=== PATIENT | male | born 1990 | race Caucasian/White ===

== ENCOUNTER 2019-05-14 18:39 | Emergency (ER) | payer OTHER ==
[~2019-05-14] VITALS: Ht 172.7 cm; Wt 74.8 kg
[2019-05-14 18:40] VITALS: BP 132/76
--- NOTE | 2019-05-14 18:52 | NUR ---
PT BROUGHT IN BLS TO ER BED 02
--- NOTE | 2019-05-14 19:00 | NUR ---
BIBA FOR ETOH/SUBSTANCE ABUSE. PT FOUND ON STREET OF [address] AND [address], PASSED OUT. SKIN IS PINK/WARM/DRY; PT IS SLEEPING BUT CAN BE WOKE UP. LUNGS CLEAR BL; HR EVEN AND REGULAR; VSS; PATIENT IS ON MONITOR AND POSITIONED FOR COMFORT; HOB ELEVATED; BEDRAILS UP X2; BED DOWN. ER MD MADE AWARE OF PT STATUS.
--- NOTE | 2019-05-14 19:08 | NUR ---
PT IS VOMITING. VSS. MADE AWARE.
--- NOTE | 2019-05-14 19:15 | NUR ---
PT IS VOMITTING. VSS. MADE AWARE.
--- NOTE | 2019-05-14 19:20 | NUR ---
RECEIVED REPORT FROM AM NURSE. PT LAYING IN BED SLEEPING, AROUSABLE TO PAIN AT THIS TIME. VSS, RR EVEN AND UNLABORED. ALL NEEDS MET.
--- NOTE | 2019-05-14 19:20 | NUR ---
REPORT GIVEN TO MIMI MOORE.
[2019-05-14] MEDS ORDERED: NACL 0.9% 1,000 ML IV ONE ×2 (20:10→21:00)
[2019-05-14 20:30] LABS: BASOPHILS # (AUTO) 0.1 K/uL (0.00-0.22); BASOPHILS % (AUTO) 1.4 % (0.0-2.0); EOSINOPHILS # (AUTO) 0.2 K/uL (0-0.4); EOSINOPHILS % (AUTO) 4.3 % (0.0-4.0); HEMATOCRIT 44.4 % (36-52); HEMOGLOBIN 14.8 g/dL (12.0-18.0); LYMPHOCYTES # (AUTO) 1.7 K/uL (2.0-11.5); LYMPHOCYTES % (AUTO) 31.7 % (20.5-51.1); MEAN CORPUSCULAR HEMOGLOBIN 31 pg (27-31); MEAN CORPUSCULAR HGB CONC 33 g/dL (33-37); MEAN CORPUSCULAR VOLUME 93.3 fL (80-94); MONOCYTES # (AUTO) 0.7 K/uL (0.8-1.0); MONOCYTES % (AUTO) 12.8 % (1.7-9.3); NEUTROPHILS # (AUTO) 2.7 K/uL (1.8-7.7); NEUTROPHILS % (AUTO) 49.8 % (42.2-75.2); PLATELET COUNT (AUTO) 254 K/uL (140-450); RED BLOOD CELL COUNT(AUTO) 4.76 MIL/uL (4.20-6.10); RED CELL DISTRIBUTION WIDTH 14.8 % (11.6-13.7); WHITE BLOOD COUNT (AUTO) 5.4 K/uL (4.8-10.8)
[2019-05-14 20:40] LABS: ANION GAP 15.5 (8-16); CARBON DIOXIDE 25.7 mmol/L (21-32); POTASSIUM 3.2 mmol/L (3.5-5.1)
--- NOTE | 2019-05-14 20:43 | NUR ---
PT LAYING IN BED, AROUSABLE TO TOUCH, PT IS NOW MORE AWAKE AND ALERT, AOX4, REPORTS WEAKNESS AND MILD NAUSEA. VSS, RR EVEN AND UNLABORED. ALL NEEDS MET AT THIS TIME.
[2019-05-14 20:46] LABS: ALBUMIN 3.7 g/dL (3.4-5.0); TOTAL BILIRUBIN 0.3 mg/dL (0.0-1.0)
[2019-05-14] MEDS ORDERED: POTASSIUM CHLORIDE 10 MEQ TABER PO ONE (20:50)
--- NOTE | 2019-05-14 22:40 | NUR ---
PT LAYING IN BED, AROUSABLE TO TOUCH, VSS, RR EVEN AND UNLABORED. ALL NEEDS MET AT THIS TIME.
[2019-05-14 23:48] LABS: BARBITURATE, URINE NEG. ng/ml (NEG <=200); BENZODIAZEPINE, URINE NEG. ng/mL (NEG <=200); CANNABINOID, URINE NEG. ng/mL (NEG <=50); COCAINE, URINE NEG. ng/mL (NEG <=300); OPIATE, URINE NEG. ng/mL (NEG <=2000); PHENCYCLIDINE SCREEN,URINE NEG. ng/mL (NEG <=25)
--- NOTE | 2019-05-15 01:40 | NUR ---
PT IS HOMELESS, STATED THAT HE WILL GO BACK TO THE STREETS. PT WITH CLOTHING APPROPRIATE FOR WEATHER. SANDWICH PROVIDED. BUS PASS PROVIDED. PT GIVEN HOMELESS RESOURCE PACKET AND ALCOHOL/SUBSTANCE ABUSE PACKET WITH EDUCATION.
--- NOTE | 2019-05-15 01:40 | NUR ---
PT AOX4, RR EVEN AND UNLABORED. DENIES ANY PAIN OR NAUSEA. AMBULATORY WITH STEADY GAIT.
[2019-05-15 01:45] VITALS: BP 105/56
--- NOTE | 2019-05-15 01:45 | NUR ---
Patient discharged with v/s stable. Written and verbal after care instructions given and explained. Patient verbalized understanding. Ambulatory with steady gait. All questions addressed prior to discharge. Advised to follow up with PMD.
== END 2019-05-15 01:45 | disposition home or self-care (01) ==
LOC: MED 18:39
DX: F10.129 Alcohol abuse with intoxication, unspecified (principal); E87.6 Hypokalemia; F15.10 Other stimulant abuse, uncomplicated; Z91.013 Allergy to seafood; Y90.8 Blood alcohol level of 240 mg/100 ml or more
CPT/HCPCS: 36415; 80053; 80305; 85025; 99283; G0482; J7030

== ENCOUNTER 2019-10-26 23:00 | Emergency (ER) | payer OTHER ==
[~2019-10-26] VITALS: Ht 165.1 cm; Wt 63.5 kg
[2019-10-26 23:00] VITALS: BP 140/59
--- NOTE | 2019-10-26 23:00 | NUR ---
PT BARBI ALS. TAKEN TO BED 11
--- NOTE | 2019-10-26 23:09 | NUR ---
29 Y/O MALE BIBA C/O ABD PAIN, N/V/D X2 DAYS. ACHING 10/10 PAIN TO MID ABD. BOWEL SOUNDS PRESENT X4 QUAD. ABD SOFT, ROUND, NONTENDER TO PALP. PT STATES HE DRANK 3 PINTS OF VODKA AND 2 TALL CANS OF "HURRICANE" TODAY. DENIES DRUG USE. RR EVEN AND UNLABORED. PT CALM AND PLEASANT IN BED. VSS. MEDHX: DENIES ALLERGIES: SHRIMP
[2019-10-26 23:15] LABS: BASOPHILS % (AUTO) 0.3 % (0.0-2.0); EOSINOPHILS # (AUTO) 0.2 K/uL (0-0.4); EOSINOPHILS % (AUTO) 2.7 % (0.0-4.0); HEMATOCRIT 42.2 % (36-52); HEMOGLOBIN 14.4 g/dL (12.0-18.0); LYMPHOCYTES # (AUTO) 3.3 K/uL (2.0-11.5); LYMPHOCYTES % (AUTO) 37.7 % (20.5-51.1); MEAN CORPUSCULAR HEMOGLOBIN 33 pg (27-31); MEAN CORPUSCULAR HGB CONC 34 g/dL (33-37); MEAN CORPUSCULAR VOLUME 96.3 fL (80-94); MONOCYTES # (AUTO) 0.6 K/uL (0.8-1.0); MONOCYTES % (AUTO) 6.3 % (1.7-9.3); NEUTROPHILS # (AUTO) 4.7 K/uL (1.8-7.7); PLATELET COUNT (AUTO) 388 K/uL (140-450); RED BLOOD CELL COUNT(AUTO) 4.38 MIL/uL (4.20-6.10); RED CELL DISTRIBUTION WIDTH 14.9 % (11.6-13.7); WHITE BLOOD COUNT (AUTO) 8.9 K/uL (4.8-10.8)
--- NOTE | 2019-10-26 23:18 | NUR ---
URINE COLLECTED FROM PT. PT COOPERATIVE AND PLEASANT. VSS. WILL CONTINUE TO MONITOR.
--- NOTE | 2019-10-26 23:49 | NUR ---
PT REMOVED IV LINE. PT STILL C/O OF ABDOMINAL PAIN. DR. ATKINSON MADE AWARE.
[2019-10-26 23:54] LABS: ANION GAP 17.2 (8-16); CHLORIDE 104 mmol/L (98-107); GLUCOSE 178 mg/dL (74-106); POTASSIUM 3.2 mmol/L (3.5-5.1); SODIUM SERUM 141 mmol/L (136-145); UREA NITROGEN, BLOOD 9 mg/dL (7-18)
[2019-10-26 23:55] LABS: CREATININE 0.8 mg/dL (0.7-1.3); GFR ARICAN-AMERICAN 146 mL/min (>90)
[2019-10-26] MEDS ORDERED: KETOROLAC 30 MG/ML VIAL IVP ONE (23:55)
[2019-10-26] MEDS ORDERED: ONDANSETRON 4 MG/2 ML VIAL IVP ONE (23:55)
[2019-10-26] MEDS ORDERED: NACL 0.9% 1,000 ML IV ONE (23:55)
[2019-10-26 23:56] LABS: ASPARTATE AMINOTRANSFERASE 24 U/L (15-37); TOTAL BILIRUBIN 0.3 mg/dL (0.0-1.0)
[2019-10-26 23:58] LABS: ACETAMINOPHEN < 0.5 ug/ml (10-30); ALBUMIN 3.9 g/dL (3.4-5.0); SALICYLATE < 2.8 mg/dL (2.8-20.0)
[2019-10-27 00:02] LABS: BARBITURATE, URINE POSITIVE ng/ml (NEG <=200); BENZODIAZEPINE, URINE NEGATIVE ng/mL (NEG <=200); CANNABINOID, URINE NEGATIVE ng/mL (NEG <=50); COCAINE, URINE NEGATIVE ng/mL (NEG <=300); OPIATE, URINE NEGATIVE ng/mL (NEG <=2000); PHENCYCLIDINE SCREEN,URINE NEGATIVE ng/mL (NEG <=25)
--- NOTE | 2019-10-27 00:39 | NUR ---
PT RESTING IN BED ALERT, RR EVEN AND UNLABORED. PT POSITIONED FOR COMFORT. BED LOCKED AND IN LOW POSITION. NO C/O PAIN AT THIS TIME. VSS. WILL CONTINUE TO MONITOR
--- NOTE | 2019-10-27 00:58 | NUR ---
PT STATES "I WANT TO LEAVE SO I CAN GET TO THE [facility] BEFORE THEY CLOSE"
[2019-10-27 01:04] VITALS: BP 106/70
--- NOTE | 2019-10-27 01:04 | NUR ---
Patient discharged with v/s stable. Written and verbal after care instructions given and explained. Patient alert, oriented and verbalized understanding of instructions. Ambulatory with steady gait. All questions addressed prior to discharge. ID band removed. Patient advised to follow up with PMD. Rx of BENTYL AND ZOFRAN given. Patient educated on indication of medication including possible reaction and side effects. Opportunity to ask questions provided and answered. PT REFUSED TO SIGN DISCHARGE PAPERWORK
== END 2019-10-27 01:04 | disposition home or self-care (01) ==
LOC: MED 23:00
DX: F10.129 Alcohol abuse with intoxication, unspecified (principal); R10.9 Unspecified abdominal pain; Y90.8 Blood alcohol level of 240 mg/100 ml or more; Z91.013 Allergy to seafood
CPT/HCPCS: 36415; 80053; 80305; 85025; 96361; 96374; 96375; 99283; G0480; G0482; J1885; J2405; J7030

== ENCOUNTER 2019-10-27 15:41 | Inpatient (IN) | payer OTHER ==
[~2019-10-27] VITALS: Ht 175.3 cm; Wt 68.9 kg
[2019-10-27 15:41] VITALS: BP 125/97
--- NOTE | 2019-10-27 15:41 | NUR ---
PT BIB [facility] WITH COMPLAINTS OF ABD PAIN AND SUICIDAL THOUGHTS. PT APPEARS DROWSY AND UNDER THE INFLUENCE. PT ADMITS TO DRINKING ALCOHOL. PT STATES "I DRINK EVERYDAY." PT ALSO HAS SUICIDAL IDEATION AND THOUGHTS OF HURTING HIMSELF AND OTHERS. PT HAS FLAT AFFECT, APPEARS UNDER THE INFLUENCE, EYES DROWSY, AWAKE AND ALERT. PT NOT ANSWERING QUESTIONS APPROPRIATELY. PT MAKING STATEMENTS LIKE "AM I ON A 72 HOUR HOLD? CAUSE IF I'M NOT THEN I'M GOING OUT AND HURTING PEOPLE." PT WAS ASKED IF HE WAS SUICIDAL AND PT REPLIES "YES." PT ASKED IF HE WANTED TO HURT OTHER PEOPLE AND PT REPLIED "YES." PT VERY AGITATED. PT REFUSING TO REMOVE HIS CLOTHING AT THIS TIME. PT ASKED TO GET INTO A GOWN AND PATIENT REFUSED.
--- NOTE | 2019-10-27 15:41 | NUR ---
HARMFUL ITEMS REMOVED FROM PTS ROOM
[2019-10-27] MEDS ORDERED: PANTOPRAZOLE 40 MG INJ VIAL IVP ONE (15:50)
[2019-10-27] MEDS ORDERED: MULTIVITAMIN-12 10 ML, THIAMINE 100 MG, MAGNESIUM SULFATE 50% 2,000 MG, FOLIC ACID 1 MG... IV SCH ×5 (15:50)
--- NOTE | 2019-10-27 15:55 | NUR ---
CALLED PHARMACY FOR BANANA BAG
--- NOTE | 2019-10-27 15:56 | NUR ---
SECURITY CALLED TO BEDSIDE.
--- NOTE | 2019-10-27 15:58 | NUR ---
SECURITY AND MORE MALE STAFF AT BEDSIDE. PT COOPERATING AND REMOVING HIS CLOTHING AND PLACED IN BELONGINGS BAG. PT IS CALM AND COOPERATIVE AT THIS TIME. PT WAS PLACED INTO A GOWN. SITTER PLACED AT BEDSIDE.
--- NOTE | 2019-10-27 15:59 | NUR ---
DR STEPHENSON AT BEDSIDE
--- NOTE | 2019-10-27 16:04 | NUR ---
Security Pancho at bedside. Belongings inventoried with myself. Belongings list made. Security took belongings to their office.
--- NOTE | 2019-10-27 16:18 | NUR ---
29 Y/O MALE BIBA WITH C/C OF SUICIDAL IDEATION, DTO, DTS. PER AMBULANCE HE SELF CALLED HIMSELF FOR HELP IN DETOX. PER ASSESSMENT PATIENT STATED HE WANTED TO HURT HIMSELF, HURT OTHERS "I CAN CAUSE A LOT OF DAMAGE". PT IN HOSPITAL EARLIER AND LABS FOR BARBITUATES, ALCOHOL OF 261 YESTERDAY. PT WITH HX OF ETOH AND DRUG ABUSE. PER EMS PT ALLERGIC TO SHRIMP, UNABLE TO OBTAIN MEDICAL HX, OR MEDICATIONS TAKEN ON A REGULAR BASIS. PT COOPERATIVE AND UNCOOPERATIVE AT TIMES. SITTER AT BEDSIDE.
--- NOTE | 2019-10-27 16:22 | NUR ---
EKG AT BEDSIDE.
[2019-10-27 16:34] LABS: BASOPHILS # (AUTO) 0.3 K/uL (0.00-0.22); BASOPHILS % (AUTO) 4.1 % (0.0-2.0); EOSINOPHILS # (AUTO) 0.2 K/uL (0-0.4); HEMATOCRIT 42.7 % (36-52); HEMOGLOBIN 14.4 g/dL (12.0-18.0); LYMPHOCYTES # (AUTO) 2.2 K/uL (2.0-11.5); LYMPHOCYTES % (AUTO) 34.4 % (20.5-51.1); MEAN CORPUSCULAR HEMOGLOBIN 33 pg (27-31); MEAN CORPUSCULAR HGB CONC 34 g/dL (33-37); MEAN CORPUSCULAR VOLUME 96.5 fL (80-94); MONOCYTES # (AUTO) 0.4 K/uL (0.8-1.0); MONOCYTES % (AUTO) 6.9 % (1.7-9.3); NEUTROPHILS # (AUTO) 3.3 K/uL (1.8-7.7); NEUTROPHILS % (AUTO) 51.6 % (42.2-75.2); PLATELET COUNT (AUTO) 375 K/uL (140-450); RED BLOOD CELL COUNT(AUTO) 4.42 MIL/uL (4.20-6.10); RED CELL DISTRIBUTION WIDTH 15.1 % (11.6-13.7); WHITE BLOOD COUNT (AUTO) 6.3 K/uL (4.8-10.8)
[2019-10-27 16:46] LABS: BARBITURATE, URINE POS. ng/ml (NEG <=200); BENZODIAZEPINE, URINE NEG. ng/mL (NEG <=200); CANNABINOID, URINE NEG. ng/mL (NEG <=50); COCAINE, URINE NEG. ng/mL (NEG <=300); OPIATE, URINE NEG. ng/mL (NEG <=2000); PHENCYCLIDINE SCREEN,URINE NEG. ng/mL (NEG <=25)
--- NOTE | 2019-10-27 16:47 | NUR ---
PER DR. STEPHENSON TO GIVE MEDICATION WIDE OPEN ; BANANA BAG
[2019-10-27 16:56] LABS: ALBUMIN 4.1 g/dL (3.4-5.0); ANION GAP 14.3 (8-16); ASPARTATE AMINOTRANSFERASE 23 U/L (15-37); CARBON DIOXIDE 27.4 mmol/L (21-32); CHLORIDE 108 mmol/L (98-107); CREATININE 0.8 mg/dL (0.7-1.3); GFR ARICAN-AMERICAN 146 mL/min (>90); GLUCOSE 88 mg/dL (74-106); POTASSIUM 3.7 mmol/L (3.5-5.1); SODIUM SERUM 146 mmol/L (136-145); TOTAL BILIRUBIN 0.2 mg/dL (0.0-1.0); UREA NITROGEN, BLOOD 5 mg/dL (7-18)
[2019-10-27 17:08] LABS: SALICYLATE < 2.8 mg/dL (2.8-20.0)
[2019-10-27 17:09] LABS: ACETAMINOPHEN < 0.5 ug/ml (10-30)
--- NOTE | 2019-10-27 17:28 | NUR ---
PT RESTLESS, SITTING UP SAYING "I HAVE ANXIETY." PT PICKING AT HIS TAPE THAT IS HOLDING HIS IV. PT INSTRUCTED TO NOT REMOVE THE IV. PT REPLIED "FUCK THAT. I WANT TO LEAVE." PT RESTLESS, AGITIATED, GRADUALLY GETTING MORE AGGRESSIVE, PULLING AWAY FROM STAFF TRYING TO KEEP HIM FROM REMOVING HIS IV. SECURITY CALLED TO BEDSIDE. BOTH EMT'S AT BEDSIDE HOLDING PATIENT ARMS DOWN. CALLED FOR HELP. PT COMBATIVE AND FIGHTING TRYING TO GET OUT OF BED. DR. STEPHENSON MADE AWARE.
--- NOTE | 2019-10-27 17:30 | NUR ---
PT PLACED IN 4 POINT RESTRAINTS AT THIS TIME PER DR. STEPHENSON ORDER. SECURITY AT BEDSIDE. EVS CHNITAN AT BEDSIDE SPEAKING WITH PATIENT.
--- NOTE | 2019-10-27 17:45 | NUR ---
UNABLE TO TAKE VITALS, SKIN AND CIRCULATION INTACT, PT COMBATIVE AND CRUSING
--- NOTE | 2019-10-27 18:05 | NUR ---
PT RELEASED FROM RESTRAINTS. FOOD TRAY PROVIDED. PT IS CALM AND COOPERATIVE. PT IS EATING. PT IS QUIET AND NOT THREATENING HARM AT THIS TIME. SITTER AT BEDSIDE.
--- NOTE | 2019-10-27 18:15 | NUR ---
PT CALM AND COOPERATIVE; RESTRAINTS REMOVED; VSS TAKEN; PT EATING IN BED; PT USED URINAL. 1-1 SITTER AT BEDSIDE.
--- NOTE | 2019-10-27 18:43 | NUR ---
PER PT, HE STATES HE TAKES 2 MG OF ATIVAN PRN 6 HRS BUT HAS NOT BEEN TAKING THE MEDICATION AND INSTEAD HAS BEEN USING ALCOHOL DAILY TO RELAX
[2019-10-27] MEDS ORDERED: LORazepam 2 MG/ML VIAL IVP ONE ×2 (18:55→21:05)
--- NOTE | 2019-10-27 19:13 | NUR ---
REPORT GIVEN TO MEGA
--- NOTE | 2019-10-27 19:26 | NUR ---
TELEPSYCH INITIATED PER DR. Mitzi GARZA
--- NOTE | 2019-10-27 19:30 | NUR ---
PT CONTINUES TO ENDORSE HOMICIDAL IDEATIONS; STATES, "I'M FROM [place]. I ALWAYS WANT TO HURT SOMEONE." PT IS GUARDED ABOUT SUICIDAL IDEATIONS, "DOES IT LOOK LIKE I WANT TO HURT MYSELF?." PT HAS FLAT AFFECT. PRESENTS ANXIOUS AND PACES AROUND BED. WILL CONTINUE TO MONITOR 1:1 WITH ED STAFF AT BEDSIDE.
--- NOTE | 2019-10-27 19:40 | NUR ---
TELEPSYCH, DR. MAYA, CALLED AND SPOKE WITH PRIMARY RN. Melissa OCASIO
--- NOTE | 2019-10-27 19:41 | NUR ---
Dr. Coats speaking to patient via remote communication.
--- NOTE | 2019-10-27 19:42 | NUR ---
SPOKE WITH PSYCHIATRIST, DR MAYA, AND GAVE BRIEF REPORT REGARDING PT AND WELL BEING.
--- NOTE | 2019-10-27 19:43 | NUR ---
Randolph laguerre in EDM - 10/27/19 at 2007 by [employer] TELEPSYCH, DR. MAYA, CALLED AND SPOKE WITH PRIMARY RN. Melissa OCASIO
--- NOTE | 2019-10-27 20:05 | NUR ---
Randolph laguerre in EDM - 10/27/19 at 2005 by [employer] TELEPSYCH, DR. MAYA, CALLED AND SPOKE WITH PRIMARY RN. Melissa OCASIO
--- NOTE | 2019-10-27 21:07 | NUR ---
PER DR RAM[facility] 5150 HOLD FOR DTO/DTS. CONTINUE TO MONITOR.
[2019-10-27] MEDS ORDERED: LORazepam 2 MG/ML VIAL ONE (21:08)
--- NOTE | 2019-10-27 21:10 | NUR ---
FAX REPORT FROM TELEPSYCH RECEIVED AND DR. GARZA MADE AWARE OF RECOMMENDATION
--- NOTE | 2019-10-27 21:16 | NUR ---
PT CONTINUES TO BE ANXIOUS AND PACING. MEDICATED PT ATIVAN 1MG PER ERMD. WILL CONTINUE TO MONITOR 1:1 WITH ED STAFF AT BEDSIDE.
--- NOTE | 2019-10-27 23:10 | NUR ---
ADMITTED 29 YEARS OLD MALE FROM ER VIA GURNEY, AWAKEN TO TRANSFER TO BED 109B AMBULATORY. 5150 HOLD FOR SUICIDAL IDEATION. SEE NURSING ADMISSION ASSESSMENT AND HISTORY. ORIENTED TO ROOM AND UNIT ROUTINES. SITTER 1:1 AT BEDSIDE AT ALL TIME. PLAN OF CARE DISCUSSED WITH PATIENT, VERBALIZED UNDERSTANDING WELL.
--- NOTE | 2019-10-27 23:15 | NUR ---
PT ADMITTED TO [facility] RM 109B. TRANSFERRED PT VIA GURNEY WITH ROSALINO EMT; STABLE CONDITION. REPORT GIVEN TO KATIE LE. PT CARE TRANSFERRED TO RECEIVING RN.
[2019-10-27] MEDS ORDERED: ZOLPIDEM 5 MG TAB PO PRN (23:20)
[2019-10-27] MEDS ORDERED: ACETAMINOPHEN 325 MG TAB PO PRN (23:20)
[2019-10-27] MEDS ORDERED: HYDROcodone/APAP 5/325 MG 1 TAB TAB PO PRN (23:20)
[2019-10-27] MEDS ORDERED: LORazepam 2 MG/ML VIAL IVP PRN (23:20)
[2019-10-27] MEDS ORDERED: POTASSIUM CHLORIDE 10 MEQ TABER PO PRN (23:20)
[2019-10-27] MEDS ORDERED: diphenhydrAMINE 50 MG/ML VIAL IVP PRN (23:20)
[2019-10-27] MEDS ORDERED: MAGNESIUM OXIDE 400 MG TAB PO PRN (23:20)
[2019-10-27] MEDS ORDERED: cloNIDine 0.1 MG TAB PO PRN (23:20)
[2019-10-27] MEDS ORDERED: ONDANSETRON 4 MG/2 ML VIAL IVP PRN (23:20)
[2019-10-27] MEDS ORDERED: MAG SULF 2000 MG/WATER PREMIX 50 ML IV PRN (23:20)
[2019-10-28 00:03] VITALS: BP 100/42
--- NOTE | 2019-10-28 02:00 | NUR ---
SLEEPING WELL. NO COMPLAINS. SITTER AT BEDSIDE 1:1 AT ALL TIMES.
--- NOTE | 2019-10-28 04:38 | NUR ---
SLEEPING WELL. SITTER AT BEDSIDE AT ALL TIME.
--- NOTE | 2019-10-28 07:15 | NUR ---
RECEIVED REPORT FROM AUTOMATIC SPINNING LATHE OPERATOR NURSE, PATIENT IN STABLE CONDITION. WILL CONTINUE TO MONITOR.
--- NOTE | 2019-10-28 07:26 | NUR ---
ENDORSED CARE AT BEDSIDE WITH SHAGUFTA RN, PATIENT IN STABLE CONDITION.
[2019-10-28 08:00] VITALS: BP 110/77
--- NOTE | 2019-10-28 08:26 | NUR ---
PATIENT HAS BEEN SCREENED AND CATEGORIZED LOW NUTRITION RISK. PATIENT WILL BE SEEN WITHIN 7 DAYS OF ADMISSION. 11/03/[address]
[2019-10-28] MEDS ORDERED: MULTIVITAMIN 1 TAB PO SCH (09:00)
[2019-10-28] MEDS ORDERED: THIAMINE 100 MG TAB PO SCH (09:00)
[2019-10-28] MEDS ORDERED: FOLIC ACID 1 MG TAB PO SCH (09:00)
--- NOTE | 2019-10-28 13:05 | NUR ---
AT THE BEDSIDE WITH PATIENT, PATIENT REQUESTING ATIVAN FOR ANXIETY, PATIENT MEDICATED AT THIS TIME PER PROTOCOL
[2019-10-28 16:00] VITALS: BP 119/79
--- NOTE | 2019-10-28 17:40 | NUR ---
AT THE BEDSIDE, PATIENT AGGREGATED, PACING THE ROOM. STATING HE WANTS TO LEAVE HOSPITAL, PULLED HIS IV OUT. NO SWELLING OR BRUISING NOTED. ATIVAN REFUSED BY PATIENT. SECURITY PRESENT FOR STAND BY. WILL CONTINUE TO MONITOR PATIENT
--- NOTE | 2019-10-28 19:30 | NUR ---
ENDORSED TO WATERWORKS OPERATOR NURSE. PATIENT IS IN STABLE CONDITION.
--- NOTE | 2019-10-28 20:00 | NUR ---
RECEIVED PT FROM MIMI HECTOR FOR CONTINUOUS CARE. PT IN STABLE CONDITION.
[2019-10-28] MEDS ORDERED: LORazepam 2 MG/ML VIAL IM/IVP PRN (20:15)
--- NOTE | 2019-10-28 20:32 | NUR ---
PT AGITATING, GIVEN ATIVAN MD ORDERED. PT TOLERATED WELL.
--- NOTE | 2019-10-28 22:00 | NUR ---
PT SLEEPING IN BED. NO ACUTE DISTRESS NOTED.
[2019-10-29] VITALS: BP 98/51
--- NOTE | 2019-10-29 00:05 | NUR ---
VS CHECKED, WITHIN PT'S BASELINE, WILL CONTINUE TO MONITOR.
--- NOTE | 2019-10-29 02:06 | NUR ---
PT SLEEPING IN BED. NO ACUTE DISTRESS NOTED.
--- NOTE | 2019-10-29 04:29 | NUR ---
PT SLEEPING IN BED COMFORTABLY. NO ACUTE DISTRESS NOTED.
--- NOTE | 2019-10-29 06:48 | NUR ---
PT SLEEPING IN BED COMFORTABLY. NO ACUTE DISTRESS NOTED. PT IN STABLE CONDITION.
--- NOTE | 2019-10-29 07:11 | NUR ---
ENDORSED PT TO DAY SHIFT NURSE. PT IN STABLE CONDITION.
--- NOTE | 2019-10-29 07:30 | NUR ---
Received report from hot box spotter nurse. Pt says he wants to go home right now. Mentioned to patient that I need to get discharge instructions from Dr. Luna. Pt said that he will wait.
--- NOTE | 2019-10-29 08:15 | NUR ---
Pt was getting agitated that his discharge is taking long. Pt said that he is waiting for discharge orders and was going against medical advice. Pt signed AMA. Advised pt on AMA and risks. and benefits of waiting for proper discharge orders. Called Dr. Luna and reported that patient was leaving unit AMA. Pt walked with a steady gait at discharge. Pt's ID band not on patient at discharge. Pt's IV line was removed by patient before discharge. No active bleeding noted. Pt's belongings with patient. Skin intact. Notified charge nurse. Notified
== END 2019-10-29 08:15 | disposition left against medical advice (07) | DRG 770 ==
LOC: MED 15:41 → MTU 22:23 → UNDOADMOB 22:23 → INTOOBSV 10-28 11:53 → OBSVTOIN 10-28 11:53 → MTU 10-28 15:53 → OBSVTOIN 10-28 15:53
PROVIDERS: ADMIT Internal Medicine Pulmonary Disease; ATTEND Internal Medicine Pulmonary Disease
DX: F10.129 Alcohol abuse with intoxication, unspecified (principal); R45.851 Suicidal ideations; Z88.8 Allergy status to other drugs, medicaments and biological substances
CPT/HCPCS: 36415; 80053; 80305; 83690; 85025; 87081; 93005; 96365; 96366; 96375; 96376; 99285; A9153; C9113; G0378; G0480; G0482; J2060; J3411; J3475; J3490; J7060

== ENCOUNTER 2019-10-29 14:57 | Emergency (ER) | payer OTHER ==
[~2019-10-29] VITALS: Ht 157.5 cm; Wt 72.6 kg
--- NOTE | 2019-10-29 14:57 | NUR ---
Patient BARBI BLS accompanied by Rosalino LOPEZ, transferred to bed 2. RN evaluating patient at bedside.
[2019-10-29 14:58] VITALS: BP 148/98
--- NOTE | 2019-10-29 15:00 | NUR ---
AMBULATORY TO BED 2, PT REFUSING TO ANSWER QUESTIONS.
--- NOTE | 2019-10-29 15:04 | NUR ---
PT BIBA FOR ETOH AND FOUND ON STREET. PT DOES NOT ANSWER ANY QUESTIONS AT THIS TIME. VSS. VSS; PATIENT POSITIONED FOR COMFORT; HOB ELEVATED; BEDRAILS UP X1; BED DOWN. ER MD MADE AWARE OF PT STATUS.
--- NOTE | 2019-10-29 15:30 | NUR ---
PATIENT GIVEN HOSPITAL SHIRT, PANTS. ASKED PATIENT TO GET INTO WHEELCHAIR FOR DISCHARGE TO [facility]. PT YELLING ON CELL PHONE.
--- NOTE | 2019-10-29 15:32 | NUR ---
PT REFUSING TO GET INTO WHEELCHAIR. SECURITY CALLED.
--- NOTE | 2019-10-29 15:45 | NUR ---
PT STATED "IM GOING TO FUCKING SIT HERE, GET THE FUCK OUT OF HERE, WHAT THE FUCK ARE YOU GOING TO DO ABOUT IT" PT MADE THREATING GESTURES TO STAFF. JUNE THOMAS CALLED BY SOBIA KUMAR TECH.
[2019-10-29 15:50] VITALS: BP 138/91
--- NOTE | 2019-10-29 15:50 | NUR ---
PT ESCORTED TO LOBBY WITH SECURITY AND BELLA CROFT. AMBULATORY.
--- NOTE | 2019-10-29 15:50 | NUR ---
Patient discharged with v/s stable. Written and verbal after care instructions given and explained. Ambulatory with steady gait and accompanied by hospital security to the lobby. All questions addressed prior to discharge.
== END 2019-10-29 15:50 | disposition home or self-care (01) ==
LOC: MED 14:57
DX: F10.129 Alcohol abuse with intoxication, unspecified (principal); Y90.4 Blood alcohol level of 80-99 mg/100 ml; Z91.013 Allergy to seafood
CPT/HCPCS: 99283

== ENCOUNTER 2019-10-30 13:31 | Inpatient (IN) | payer OTHER ==
[~2019-10-30] VITALS: Ht 165.1 cm; Wt 64.9 kg
--- NOTE | 2019-10-30 15:01 | NUR ---
REFER TO DOWN TIME CHARTING FORM FOR PREVIOUS NOTES AND ORDERS.
--- NOTE | 2019-10-30 15:18 | NUR ---
PT IS NOT ABLE TO URINATE AT THIS TIME. THREE CUPS OF WATER PROVIDED TO PT.
[2019-10-30 15:26] LABS: HEMATOCRIT 43.1 % (36-52); HEMOGLOBIN 14.4 g/dL (12.0-18.0); MEAN CORPUSCULAR HEMOGLOBIN 32 pg (27-31); MEAN CORPUSCULAR HGB CONC 34 g/dL (33-37); MEAN CORPUSCULAR VOLUME 96.2 fL (80-94); RED BLOOD CELL COUNT(AUTO) 4.48 MIL/uL (4.20-6.10); WHITE BLOOD COUNT (AUTO) 11.6 K/uL (4.8-10.8)
[2019-10-30 15:27] LABS: BASOPHILS # (AUTO) 0.2 K/uL (0.00-0.22); BASOPHILS % (AUTO) 1.4 % (0.0-2.0); EOSINOPHILS % (AUTO) 0.3 % (0.0-4.0); LYMPHOCYTES # (AUTO) 2.8 K/uL (2.0-11.5); LYMPHOCYTES % (AUTO) 23.8 % (20.5-51.1); MONOCYTES # (AUTO) 0.8 K/uL (0.8-1.0); MONOCYTES % (AUTO) 6.5 % (1.7-9.3); NEUTROPHILS # (AUTO) 7.9 K/uL (1.8-7.7); PLATELET COUNT (AUTO) 333 K/uL (140-450); RED CELL DISTRIBUTION WIDTH 15.1 % (11.6-13.7)
[2019-10-30 15:38] LABS: ANION GAP 19.3 (8-16); ASPARTATE AMINOTRANSFERASE 48 U/L (15-37); CARBON DIOXIDE 25.3 mmol/L (21-32); CHLORIDE 100 mmol/L (98-107); CREATININE 0.9 mg/dL (0.7-1.3); GFR ARICAN-AMERICAN 127 mL/min (>90); GLUCOSE 76 mg/dL (74-106); POTASSIUM 3.6 mmol/L (3.5-5.1); SODIUM SERUM 141 mmol/L (136-145); TOTAL BILIRUBIN 0.5 mg/dL (0.0-1.0); UREA NITROGEN, BLOOD 10 mg/dL (7-18)
[2019-10-30 15:39] LABS: ACETAMINOPHEN < 0.5 ug/ml (10-30); ALBUMIN 4.2 g/dL (3.4-5.0); SALICYLATE < 2.8 mg/dL (2.8-20.0)
--- NOTE | 2019-10-30 16:01 | NUR ---
URINE SAMPLE OBTAINED. PT IS SITTING IN BED CALMLY.
--- NOTE | 2019-10-30 17:31 | NUR ---
PT IS SITTING IN BED CALMLY WITH EYES OPENED. VSS.
[2019-10-30 17:37] LABS: BARBITURATE, URINE POSITIVE ng/ml (NEG <=200)
[2019-10-30 17:38] LABS: BENZODIAZEPINE, URINE NEGATIVE ng/mL (NEG <=200); CANNABINOID, URINE NEGATIVE ng/mL (NEG <=50); COCAINE, URINE NEGATIVE ng/mL (NEG <=300); OPIATE, URINE NEGATIVE ng/mL (NEG <=2000); PHENCYCLIDINE SCREEN,URINE NEGATIVE ng/mL (NEG <=25)
--- NOTE | 2019-10-30 17:53 | NUR ---
PT IS CALM AND EATING DINNER IN BED. 1 TO 1 SITTER IS AT BEDSIDE.
--- NOTE | 2019-10-30 18:10 | NUR ---
TELEPSYCH ORDERED PER DR. STEPHENSON
--- NOTE | 2019-10-30 18:37 | NUR ---
SPEAK TO PSYCHAITRIST VIA TELE PSYCH.
--- NOTE | 2019-10-30 19:17 | NUR ---
[facility] has received chart via fax and will begin working on bed placement with contracted [facility] facilities.
--- NOTE | 2019-10-30 19:22 | NUR ---
Pt report given to MIMI Early. Transfer of care at this time.
--- NOTE | 2019-10-30 19:22 | NUR ---
RECEIVED REPORT FROM MIMI VALENTINO.
--- NOTE | 2019-10-30 19:44 | NUR ---
Calls wre made to the following contracted psych facilities regarding bed placement. [facility], spoke with Adama, no beds available at this time. [facility], spoke with Josselyn, no beds available for tonight. [facility], no answer and left message with call center. [facility], spoke with Eran, no beds available for tonight. [facility], spoke with Naomie, no beds available for tonight, packet was faxed for AM review. Ceci Mejia [facility], spoke with Alissa, possible bed, packet was faxed for review. Ceci SALVADOR will call [facility] if they can accommodate patient. [facility], spoke with Markos, no beds available for tonight. [facility], called intake and no answer and no voice mail.
[2019-10-30] MEDS ORDERED: LORazepam 2 MG/ML VIAL IM ONE (20:00)
--- NOTE | 2019-10-30 20:34 | NUR ---
PT. IS RESTING IN BED WITH EYES CLOSED. 1:1 SITTER AT BEDSIDE. WILL CONTINUE TO MONITOR.
--- NOTE | 2019-10-30 21:37 | NUR ---
PT. IS SITTING QUIETLY WHILE RESTING HIS EYES. 1:1 SITTER AT BEDSIDE. WILL CONTINUE TO MONITOR.
--- NOTE | 2019-10-30 22:14 | NUR ---
PATIENT IS IN BED SITTING QUIETLY. 1:1 SITTER AT BEDSIDE. WILL CONTINUE TO MONITOR.
--- NOTE | 2019-10-31 01:52 | NUR ---
PATIENT IS QUIETLY RESTING IN BED AT THIS TIME. 1:1 SITTER AT BEDSIDE. WILL CONTINUE TO MONITOR.
[2019-10-31] MEDS ORDERED: ACETAMINOPHEN 325 MG TAB PO PRN (02:05)
[2019-10-31] MEDS ORDERED: ONDANSETRON 4 MG/2 ML VIAL IVP PRN (02:05)
[2019-10-31] MEDS ORDERED: ZOLPIDEM 5 MG TAB PO PRN (02:10)
--- NOTE | 2019-10-31 02:43 | NUR ---
PT. IS RESTING WITH EYES CLOSED. 1:1 SITTER AT BEDSIDE. WILL CONTINUE TO MONITOR.
--- NOTE | 2019-10-31 03:05 | NUR ---
Admited to Med/Surg. Will go to room 109 B. Belongings list completed. Report to MIMI PONCE .
--- NOTE | 2019-10-31 03:05 | NUR ---
PT BROUGHT UP BY BENITA PUTTY AND CAULKING SUPERVISOR NURSE, AND WAS WHEELED TO ROOM 109, PT THEN TRANSFERRED TO BED A. HE IS ALERT AND ORIENTED X3. HE IS COOPERATIVE BUT GUARDED,PT DENIES ANY MEDICAL HX AT THIS TIME EXCEPT FOR TAKING DRUGS AND TRYING TO HARM HIMSELF. PT HOWEVER SAID THAT HE CURRENTLY DOESN'T HAVE PLANS TO HARM HIMSELF. PT SKIN INTACT AND HE HAS A 22G IV SITE ON RIGHT AC, WHICH IS SALINE LOCKED. V/S FOLLOWS: T 97.4 P 88 R 18 B/P 112/80 02 99% ON ROOM AIR.
[2019-10-31 04:07] VITALS: BP 112/80
--- NOTE | 2019-10-31 04:27 | NUR ---
PT IN BED RESTING NO S/S OF PAIN OR DISTRESS NOTED, BED LOW WITH SIDE RAILS UP X2 AND 1:1 SITTER AT BEDSIDE.
--- NOTE | 2019-10-31 06:10 | NUR ---
PT IN LOW BED WITH SIDE RAILS UP X2 SLEEPING NO S/S OF PAIN OR DISTRESS NOTED AND 1:1 SITTER AT BEDSIDE.
--- NOTE | 2019-10-31 06:46 | NUR ---
PATIENT HAS BEEN SCREENED AND CATEGORIZED LOW NUTRITION RISK. PATIENT WILL BE SEEN WITHIN 7 DAYS OF ADMISSION. 11/07/19 MUNIR BRUNO MS, RDN
--- NOTE | 2019-10-31 07:26 | NUR ---
PATIENT REPORT GIVEN BY ENGINEER DESIGN AND CONSTRUCTION NURSE FOR CONTINUITY OF CARE. PATIENT IS ON A 5150 FOR SI. PATIENT HAS NO PERTINENT MEDICAL HX. RESTING IN BED. WILL CONTINUE TO MONITOR.
[2019-10-31 08:00] VITALS: BP 106/59
--- NOTE | 2019-10-31 08:57 | NUR ---
[facility] RECIEVED REPORT FROM NOC SHIFT THERE ARE NO NEW UPDATES AT THIS TIME WILL CONT TO MONITOR AND ASSIST IN PLACEMENT
--- NOTE | 2019-10-31 10:00 | NUR ---
PATIENT IS IN BED RESTING, IRRITABLE. ATIVAN GIVEN FOR ANXIETY. 1:1 SITTER DUE TO 5150 FOR SUICIDAL IDEATION. BED IN LOWEST POSITION, CALL LIGHT ON. WILL CONTINUE TO MONITOR.
[2019-10-31] MEDS: LORazepam 1 MG TAB PO PRN ×2 (11:09→21:46)
--- NOTE | 2019-10-31 11:32 | NUR ---
Geodetic Survey Director Note: Basic Screen: Yes High Risk DC Screen Yes Name: RAZ ANTONY Home Relationship: MOTHER Pre-Admission Living Arrangements: Other Other: PRIMARILY COUCH SURFS BETWEEN BROTHER'S/MOTHER'S RESIDENCE Prior ADL Independent Current Home Health Name/Tel: N/A Current DME/02 Name/Tel: N/A Current Hospice Name/Tel: N/A Current Dialysis Name/Tel: N/A Healthcare Decision Maker: Patient Advance Directive No - REFUSED Physician Orders for Life Sustaining Treatment Form No Patient/Family Have Educational Needs No Information Taught: Advance Directive Community Resources Person Taught: Patient Teaching Tools: Community Resources Verbal Factors Affecting Learning: None Participation Level: Active Evaluation: Verbalizes Understanding Needs Additional Education: No Discipline: Case Mgt/Social Svcs Tentative Discharge Plan/Destination: No Needs Identified Will require assistance post discharge: No Referred to Exhibit Designer: No Tentative Discharge Plan Summary: Patient is a 29-year-old male admitted for psychosis. Patient is on a 5150 hold that began on 10/30/2019. Patient has no significant PMHX. Patient was admitted from home. SW verified demographics with patient. Patient requested to add his mother, Raz Antony [phone] to face sheet. SW began using motivational interviewing techniques such as open ended questions and active listening to build rapport with patient. Patient stated that he was not suicidal but was under the influence of Xanax, 4 pints of liquor, and methamphetamines during admission. Patient states that he has had no history of suicidal ideations, but was hallucinating and was delusional at time of admission. Patient reports no auditory or visual hallucinations currently. Patient stated that he has no history of mental health. Patient reported a drug history of alcohol (daily, 4 pints of liquor) and methamphetamines (1x a week, 0.5 grams). Patient reports occasional use of heroine, ecstasy, cocaine, marijuana, and xanax. Patient refused to disclose how much he uses the other substances. SW provided counseling regarding drug use and substance use resources. SW provided education on outpatient programs and sober livings to patient. Patient verbalized appreciation. Patient's tentative plan after discharge is to return home and arrange for sober living. No further needs identified. Signature: RENÉE Ma Date: Oct 31, 2019 Time: 11:29
--- NOTE | 2019-10-31 12:30 | NUR ---
PATIENT IS RESTING IN BED, IRRITABLE AFFECT. 1:1 SITTER FOR 5150 STATUS. WILL CONTINUE TO MONITOR.
--- NOTE | 2019-10-31 13:00 | NUR ---
PATIENT IS RESTING IN BED, LUNCH WAS PROVIDED, TOLERATED WELL. NO SIGNS OF DISTRESS NOTED. AVOIDANT BEHAVIOR. 1:1 SITTER DUE TO 5150. BED IN LOW POSITION, CALL LIGHT ON, WILL CONTINUE TO MONITOR.
--- NOTE | 2019-10-31 14:59 | NUR ---
PATIENT IS RESTING IN BED, BED IN LOW POSITION, CALL LIGHT ON, NO SIGNS OF DISTRESS NOTED. WILL CONTINUE TO MONITOR.
--- NOTE | 2019-10-31 15:31 | NUR ---
ROSARIO FROM [facility] CALLED STATED SHE WAS REVIEWING PACKET HOWEVER NEEDED NOTES FROM TELEPSYCH, CALLED AND SPOKE TO CAYLA RN EXPLAINED WHAT WAS NEEDED SHE STATED SHE WOULD FAX NOTES AWAIYING FOR NOTES TO BE FAXED AT THIS TIME
--- NOTE | 2019-10-31 15:34 | NUR ---
SENT TELE [facility] CONSULT TO BEHAVIORAL HEALTH AT [phone]
--- NOTE | 2019-10-31 15:35 | NUR ---
RECIEVED TELE PSYCH NOTES WILL. FAX TO ROSARIO AT [place] [phone]
[2019-10-31 16:00] VITALS: BP 111/76
--- NOTE | 2019-10-31 17:30 | NUR ---
PATIENT IS IN BED, IRRITABLE, DENIES REASON FOR ADMISSION. PLACEMENT TO [facility] PENDING PSYCH CONSULT. BED IN LOW POSITION. CALL LIGHT ON, WILL CONTINUE TO MONITOR.
--- NOTE | 2019-10-31 19:31 | NUR ---
RECEIVED REPORT AT BEDSIDE FORM BOB RN AND VERNON RN DAYSHIFT NURSE AT BEDSIDE FOR CONTINUITY OF CARE, PT IN STABLE CONDITION.
--- NOTE | 2019-10-31 20:00 | NUR ---
PT IN LOW BED WITH SIDE RAILS UP X2. HE HAS NO C/O VOICED AT THIS TIME, IV SITE ON RIGHT AC INTACT AND FLUSHED PATENT. PT ASKING TO SEE MD GUERRERO FOR HIS PSYCH CONSUL. PT REASSURED THAT HE WILL SEE MD MAO. V/S FOLLOWS: T 98.7 P 92 R 18 B/P 114/76 02 95% ON ROOM AIR. 1:1 SITTER AT BEDSIDE.
--- NOTE | 2019-10-31 21:15 | NUR ---
PT HAVING PSYCH CONSULT AT BEDSIDE. 1:1 SITTER AT BEDSIDE.
--- NOTE | 2019-10-31 21:35 | NUR ---
D/C 5150 HOLD PER IDREEZ.
--- NOTE | 2019-10-31 22:00 | NUR ---
PT C/O OF FEELING ANXIOUS AND HAVING INSOMNIA. PT GIVEN PO/PRN ATIVAN FOR ANXIETY AND AMBIEN PO/PRN FOR INSOMNIA REQUESTED. WILL MONITOR FOR EFFECT. 1:1 SITTER REMAINS AT BEDSIDE FOR SUICIDE PRECAUTIONS.
[2019-11-01] VITALS: BP 103/64
--- NOTE | 2019-11-01 00:10 | NUR ---
PT IN BED ASLEEP BUT AROUSABLE TO LIGHT TOUCH AND NAME, NO C/O VOICED BY PT V/S A FOLLOWS: T 98.1 P 82 R 18 B/P 103/64 02 97% ON ROOM AIR. BED;LOW AND SIDE RAILS UP X2.
--- NOTE | 2019-11-01 02:11 | NUR ---
PT IN BED ASLEEP NO S/S OF PAIN OR DISTRESS NOTED.
--- NOTE | 2019-11-01 07:15 | NUR ---
RECEIVED PT FROM REFUGE WORKER NURSE ROSARIO FOR CONTINUITY OF CARE. PT IN STABLE CONDITION. RESPIRATIONS EVEN AND UNLABORED. IV INTACT AND PATENT. SAFETY MEASURES IN PLACE. BED IN LOW POSITION. CALL LIGHT AT BEDSIDE. WILL CONTINUE TO MONITOR.
[2019-11-01 08:00] VITALS: BP 109/68
--- NOTE | 2019-11-01 09:50 | NUR ---
SECURITY CALLED TO BRING PT ITEMS TO ROOM.
--- NOTE | 2019-11-01 10:30 | NUR ---
GAVE DISCHARGE INSTRUCTIONS PT VERBALIZED UNDERSTANDING. IV REMOVED LUMEN INTACT. ID BAND REMOVED. PT REFUSED WHEELCHAIR. PT VERIFIED HOMELESS PACKET GIVEN TO PT BY CASE MANAGEMENT. PT ESCORTED TO LOBBY WHERE HE VERBALIZED WALKING AROUND THE CORNER TO FRIENDS HOME. PT IN STABLE CONDITION.
== END 2019-11-01 10:30 | disposition home or self-care (01) | DRG 775 ==
LOC: MED 13:31 → MTU 10-31 02:07
PROVIDERS: ADMIT Internal Medicine Pulmonary Disease; ATTEND Internal Medicine Pulmonary Disease
DX: F10.129 Alcohol abuse with intoxication, unspecified (principal); R45.851 Suicidal ideations; F15.10 Other stimulant abuse, uncomplicated; F32.9 Major depressive disorder, single episode, unspecified; Y90.7 Blood alcohol level of 200-239 mg/100 ml; Z59.0 Homelessness; Z91.013 Allergy to seafood
CPT/HCPCS: 36415; 80053; 80305; 85025; 87081; 93005; 96372; 99285; G0480; G0482; J2060

== ENCOUNTER 2019-12-29 15:22 | Emergency (ER) | payer OTHER ==
[~2019-12-29] VITALS: Ht 175.3 cm; Wt 63.5 kg
--- NOTE | 2019-12-29 15:22 | NUR ---
Patient BIBA BLS, transferred to bed 3. RN evaluating patient at bedside.
[2019-12-29] MEDS ORDERED: ONDANSETRON 4 MG/2 ML VIAL IVP ONE (15:25)
[2019-12-29] MEDS ORDERED: MULTIVITAMIN-12 10 ML, THIAMINE 100 MG, FOLIC ACID 1 MG, MAGNESIUM SULFATE 50% 2,000 MG... IV SCH ×10 (15:25→15:34)
[2019-12-29 15:29] VITALS: BP 147/60
[2019-12-29 15:58] LABS: BASOPHILS # (AUTO) 0.1 K/uL (0.00-0.22); BASOPHILS % (AUTO) 0.7 % (0.0-2.0); EOSINOPHILS % (AUTO) 0.3 % (0.0-4.0); HEMATOCRIT 41.4 % (36-52); HEMOGLOBIN 13.6 g/dL (12.0-18.0); LYMPHOCYTES # (AUTO) 2.4 K/uL (2.0-11.5); LYMPHOCYTES % (AUTO) 32.1 % (20.5-51.1); MEAN CORPUSCULAR HEMOGLOBIN 31 pg (27-31); MEAN CORPUSCULAR HGB CONC 33 g/dL (33-37); MEAN CORPUSCULAR VOLUME 95.9 fL (80-94); MONOCYTES # (AUTO) 1.1 K/uL (0.8-1.0); MONOCYTES % (AUTO) 14.7 % (1.7-9.3); NEUTROPHILS # (AUTO) 3.9 K/uL (1.8-7.7); NEUTROPHILS % (AUTO) 52.2 % (42.2-75.2); PLATELET COUNT (AUTO) 310 K/uL (140-450); RED BLOOD CELL COUNT(AUTO) 4.31 MIL/uL (4.20-6.10); RED CELL DISTRIBUTION WIDTH 15.2 % (11.6-13.7); WHITE BLOOD COUNT (AUTO) 7.4 K/uL (4.8-10.8)
[2019-12-29] MEDS ORDERED: KETOROLAC 30 MG/ML VIAL IVP ONE (16:05)
[2019-12-29 16:35] LABS: SODIUM SERUM 144 mmol/L (136-145)
[2019-12-29 16:37] LABS: POTASSIUM 2.6 mmol/L (3.5-5.1)
[2019-12-29 16:38] LABS: ANION GAP 16.9 (8-16); CARBON DIOXIDE 24.7 mmol/L (21-32); CHLORIDE 105 mmol/L (98-107); GLUCOSE 76 mg/dL (74-106)
[2019-12-29 16:41] LABS: CREATININE 1.1 mg/dL (0.7-1.3); GFR ARICAN-AMERICAN 101 mL/min (>90); UREA NITROGEN, BLOOD 6 mg/dL (7-18)
--- NOTE | 2019-12-29 16:41 | NUR ---
29 Y/O M BIB AMBULANCE FOR ABDOMINAL PAIN, N/V DIARRHEA X 2 DAYS. PT HAS A COUGH, LUNG SOUNDS CLEAR THROUGHOUT. PT VS STABLE. IV 20 G LT AC PLACED BY AMBULANCE. PT POSITIONED FOR COMFORT, HOOKED UP TO MONITOR.
[2019-12-29 16:42] LABS: ASPARTATE AMINOTRANSFERASE 30 U/L (15-37); TOTAL BILIRUBIN 0.2 mg/dL (0.0-1.0)
[2019-12-29 16:43] LABS: ACETAMINOPHEN < 0.5 ug/ml (10-30); ALBUMIN 3.2 g/dL (3.4-5.0); LIPASE 306 U/L (73-393); SALICYLATE < 2.8 mg/dL (2.8-20.0)
[2019-12-29 16:48] LABS: BARBITURATE, URINE NEG. ng/ml (NEG <=200); BENZODIAZEPINE, URINE NEG. ng/mL (NEG <=200); CANNABINOID, URINE NEG. ng/mL (NEG <=50); COCAINE, URINE NEG. ng/mL (NEG <=300); OPIATE, URINE NEG. ng/mL (NEG <=2000); PHENCYCLIDINE SCREEN,URINE NEG. ng/mL (NEG <=25)
--- NOTE | 2019-12-29 17:12 | NUR ---
PT TEMP 100.3. NOTIFIED, ADVISED TO HOLD OFF ON MOTRIN/TYLENOL. PT HAD TORADOL.
[2019-12-29] MEDS ORDERED: NACL 0.9% 1,000 ML IV ONE (17:30)
--- NOTE | 2019-12-29 17:47 | NUR ---
PT GIVEN NACL 100ML, REPOSITIONED FOR COMFORT, VSS. PT TEMPERATURE 98.9. GAVE WATER.
[2019-12-29 18:53] VITALS: BP 111/57
--- NOTE | 2019-12-29 18:55 | NUR ---
Patient discharged with v/s stable. Written and verbal after care instructions given and explained. Patient alert, oriented and verbalized understanding of instructions. Ambulatory with steady gait. All questions addressed prior to discharge. ID band removed. Patient advised to follow up with PMD. Rx of ZOFRAN,OMPERAZOLE given. Patient educated on indication of medication including possible reaction and side effects. Opportunity to ask questions provided and answered.
--- NOTE | 2019-12-30 11:40 | NUR ---
Late entry. Confirmed with RN that 0.9 NS IV completed at 1840
== END 2019-12-29 18:55 | disposition home or self-care (01) ==
LOC: MED 15:22
DX: K29.20 Alcoholic gastritis without bleeding (principal); F11.10 Opioid abuse, uncomplicated; F14.10 Cocaine abuse, uncomplicated; F15.10 Other stimulant abuse, uncomplicated; Z59.0 Homelessness
CPT/HCPCS: 36415; 80053; 80305; 83690; 85025; 93005; 96361; 96365; 96375; 99284; A9153; G0480; G0482; J1885; J2405; J3411; J3475; J3490; J7030

== ENCOUNTER 2020-01-03 19:56 | Emergency (ER) | payer MEDICAID, OTHER ==
[~2020-01-03] VITALS: Ht 165.1 cm; Wt 68.0 kg
[2020-01-03 20:01] VITALS: BP 111/65
[2020-01-03] MEDS ORDERED: LORazepam 1 MG TAB PO ONE ×2 (20:05→21:55)
--- NOTE | 2020-01-03 20:10 | NUR ---
29 YEAR OLD MALE BIBA, PLACED ON BY POLICE. PER REPORT PATIENT CALLED POLICE AND STATED THAT HE WANTED TO KILL HIMSELF. PATIENT AOX4, BREATHING EVEN AND UNLABORED, SKIN WARM AND DRY. PATIENT DENIES ANY PAIN AT THIS TIME. BED IN LOWEST POSITION, LOCKED, BED RAIL UPX2. SEIZURE PRECAUTIONS INITIATED. ROOM PREPARED APPROPRIATELY FOR SUICIDAL PRECAUTIONS.
--- NOTE | 2020-01-03 20:15 | NUR ---
LINNEA EMT AT BEDSIDE SITTING FOR PATIENT
--- NOTE | 2020-01-03 20:25 | NUR ---
Randolph laguerre in ED - 01/03/20 at 2041 by MEDJJ PATIENT STARTED TO SHAKE IN BED, PLACED ON 2L O2 AND TURNED TO SIDE. O2 SATURATION 100%. DR CAMARILLO NOTIFIED.
--- NOTE | 2020-01-03 20:25 | NUR ---
SUICIDE RISK AND LETHALITY ADMISSION ASSESSMENT QUESTIONS BEING ASKED AND DURING THIS PATIENT STARTED TO SHAKE IN BED, PLACED ON 2L O2 AND TURNED TO SIDE. O2 SATURATION 100%. DR CAMARILLO NOTIFIED.
--- NOTE | 2020-01-03 20:26 | NUR ---
DR CAMARILLO AT BEDSIDE
[2020-01-03] MEDS ORDERED: LORazepam 2 MG/ML VIAL IVP ONE (20:30)
--- NOTE | 2020-01-03 20:36 | NUR ---
PATIENT STARTED SHAKING AGAIN DURING MEDICATION ADMINISTRATION ONLY IN ARMS DURING IV MEDICATION OF ATIVAN, GRABBED MY HAND, THEN TOLD ME TO STOP. PATIENT CONTINUED TO SHAKE ARMS AFTER.
[2020-01-03 20:39] LABS: BASOPHILS # (AUTO) 0.1 K/uL (0.00-0.22); BASOPHILS % (AUTO) 1.9 % (0.0-2.0); EOSINOPHILS % (AUTO) 0.6 % (0.0-4.0); HEMATOCRIT 45.2 % (36-52); HEMOGLOBIN 15.1 g/dL (12.0-18.0); LYMPHOCYTES # (AUTO) 2.4 K/uL (2.0-11.5); LYMPHOCYTES % (AUTO) 36.1 % (20.5-51.1); MEAN CORPUSCULAR HEMOGLOBIN 32 pg (27-31); MEAN CORPUSCULAR HGB CONC 33 g/dL (33-37); MEAN CORPUSCULAR VOLUME 94.8 fL (80-94); MONOCYTES # (AUTO) 0.5 K/uL (0.8-1.0); NEUTROPHILS # (AUTO) 3.7 K/uL (1.8-7.7); NEUTROPHILS % (AUTO) 54.4 % (42.2-75.2); PLATELET COUNT (AUTO) 293 K/uL (140-450); RED BLOOD CELL COUNT(AUTO) 4.77 MIL/uL (4.20-6.10); RED CELL DISTRIBUTION WIDTH 15.2 % (11.6-13.7); WHITE BLOOD COUNT (AUTO) 6.8 K/uL (4.8-10.8)
[2020-01-03] MEDS ORDERED: NACL 0.9% 1,000 ML IV ONE (20:45)
--- NOTE | 2020-01-03 20:45 | NUR ---
PATIENT STATES HE IS UNABLE TO URINATE, TELEPSYCHE BEING PREPARED AT BEDSIDE
--- NOTE | 2020-01-03 20:47 | NUR ---
TELEPSYCH INTITIATED - CONNECT ID:[id number]
[2020-01-03 20:54] LABS: ANION GAP 14.2 (8-16); CARBON DIOXIDE 26.9 mmol/L (21-32); CREATININE 0.9 mg/dL (0.6-1.3); POTASSIUM 3.1 mmol/L (3.5-5.1)
[2020-01-03 21:00] LABS: ALBUMIN 3.8 g/dL (3.4-5.0); ASPARTATE AMINOTRANSFERASE 34 U/L (15-37); BILIRUBIN,DIRECT 0.1 mg/dL (0.0-0.3); LIPASE 670 U/L (73-393); TOTAL BILIRUBIN 0.2 mg/dL (0.0-1.0)
--- NOTE | 2020-01-03 21:03 | NUR ---
PATIENT REFUSES TO GIVE URINE, STATES TO "COME GET IT FROM ME"
[2020-01-03 21:04] LABS: SALICYLATE < 2.8 mg/dL (2.8-20.0)
[2020-01-03 21:06] LABS: ACETAMINOPHEN < 0.5 ug/ml (10-30)
--- NOTE | 2020-01-03 21:08 | NUR ---
PATIENT SOFT CRAB SHEDDER WITH TELEPSYCHE
--- NOTE | 2020-01-03 21:20 | NUR ---
[facility] TO CONTINUE THE HOLD AND WANTS TO ADMIT THE PATIENT ONCE HE IS CLINICALLY CLEARED.
--- NOTE | 2020-01-03 21:53 | NUR ---
PATIENT GETTING AGITATED, STATES HE WANTS MORE ATIVAN. DR CAMARILLO AWARE, SECURITY CALLED
--- NOTE | 2020-01-03 21:53 | NUR ---
Randolph laguerre in [facility] - 01/03/20 at 2154 by MEDJJ PATIENT GETTING AGITATED, SECURITY CALLED
[2020-01-03] MEDS ORDERED: POTASSIUM CHLORIDE 10 MEQ TABER PO ONE (22:00)
[2020-01-03] MEDS ORDERED: THIAMINE 100 MG TAB PO SCH (22:00)
[2020-01-03 22:11] LABS: BARBITURATE, URINE NEG. ng/ml (NEG <=200); BENZODIAZEPINE, URINE NEG. ng/mL (NEG <=200); CANNABINOID, URINE NEG. ng/mL (NEG <=50); COCAINE, URINE NEG. ng/mL (NEG <=300); OPIATE, URINE NEG. ng/mL (NEG <=2000); PHENCYCLIDINE SCREEN,URINE NEG. ng/mL (NEG <=25)
--- NOTE | 2020-01-03 22:42 | NUR ---
PATIENT RESTING WITH EYES CLOSED, BREATHING EVEN AND UNLABORED
--- NOTE | 2020-01-03 23:46 | NUR ---
PATIENT RESTING WITH EYES CLOSED, BREATHING EVEN AND UNLABORED
--- NOTE | 2020-01-04 00:56 | NUR ---
PATIENT RESTING WITH EYES CLOSED, BREATHING EVEN AND UNLABORED
--- NOTE | 2020-01-04 01:59 | NUR ---
PATIENT RESTING WITH EYES CLOSED, BREATHING EVEN AND UNLABORED. EMT LINNEA STILL AT BEDSIDE
--- NOTE | 2020-01-04 02:52 | NUR ---
PATIENT RESTING WITH EYES CLOSED, BREATHING EVEN AND UNLABORED.
--- NOTE | 2020-01-04 03:47 | NUR ---
PATIENT RESTING WITH EYES CLOSED, BREATHING EVEN AND UNLABORED. EMT LINNEA STILL AT BEDSIDE
--- NOTE | 2020-01-04 06:18 | NUR ---
[facility] aware of patient. Will assist with inpatient psych placement if assistance is needed
--- NOTE | 2020-01-04 06:21 | NUR ---
PATIENT RESTING WITH EYES CLOSED, BREATHING EVEN AND UNLABORED. EMT LINNEA STILL AT BEDSIDE
[2020-01-04] MEDS ORDERED: NACL 0.9% 1,000 ML IV ONE (06:50)
--- NOTE | 2020-01-04 07:06 | NUR ---
REPORT GIVEN TO MONE LE AND JAMES LE, TRANSFER OF CARE AT THIS TIME
--- NOTE | 2020-01-04 07:07 | NUR ---
REPORT RECEIVED FROM CAROL LE. PT IN BED SLEEPING. IV INTACT. SEIZURE PRECAUTIONS IN PLACE. BOTH SIDE RAILS UP. VSS AT THIS TIME.
--- NOTE | 2020-01-04 07:23 | NUR ---
CALLED DIETARY AND LEFT MESSAGE FOR BREAKFAST TRAY PER ORDERS.
--- NOTE | 2020-01-04 07:31 | NUR ---
LAB AT BEDSIDE
--- NOTE | 2020-01-04 07:53 | NUR ---
PT BREAKFAST TRAY AT BEDSIDE. PT DOES NOT WANT TO EAT AT THIS TIME.
--- NOTE | 2020-01-04 08:18 | NUR ---
Dr. Galvin is evaluating the patient at bedside.
--- NOTE | 2020-01-04 08:22 | NUR ---
Secondary telepsychiatry consultation ordered as requested by Dr. Galvin.
--- NOTE | 2020-01-04 08:53 | NUR ---
PT SLEEPING. VSS. NORMAL UNLABORED BREATHING. PT DID NOT EAT BREAKFAST YET. Addendum: 01/04/20 at 0854 by [facility] PT SLEEPING. VSS. NORMAL UNLABORED BREATHING. PT DID NOT EAT BREAKFAST YET. SEIZURE PRECAUTIONS IN PLACE AND BED IN LOWEST POSITION.
--- NOTE | 2020-01-04 10:15 | NUR ---
PT RESTING IN BED. EYES CLOSED, BREATHS EVEN AND UNLABORED.
--- NOTE | 2020-01-04 10:49 | NUR ---
PT HAD TELECONFERENCE WITH PSYCH
[2020-01-04 12:45] VITALS: BP 112/74
== END 2020-01-04 12:40 | disposition home or self-care (01) ==
LOC: MED 19:56
DX: F10.129 Alcohol abuse with intoxication, unspecified (principal); R45.851 Suicidal ideations; Z91.013 Allergy to seafood
CPT/HCPCS: 36415; 80048; 80076; 80305; 83690; 85025; 96374; 99284; G0480; G0482; J2060; J7030

== ENCOUNTER 2020-01-05 14:25 | Emergency (ER) | payer MEDICAID, OTHER ==
[~2020-01-05] VITALS: Ht 167.6 cm; Wt 68.0 kg
[2020-01-05 14:25] VITALS: BP 132/74
--- NOTE | 2020-01-05 14:39 | NUR ---
29 Y/O M BIBA. [facility]. PT WAS IN THE ED YESTERDAY BIBA FOR INTOXICATION. PT IN ARM RESTRAINTS, COMBATIVE WITH SPIT GUARD OVER FACE. PT VSS. NO INJURIES NOTED. ALLERGIES: SHRIMP
--- NOTE | 2020-01-05 14:41 | NUR ---
ENV[employer]MENT[employer]UDIES FACULTY MEMBER AT BEDSIDE DRAWING ORDERED LABS.
--- NOTE | 2020-01-05 14:47 | NUR ---
PT CAME IN WITH 4 POINT RESTRAINTS, REMOVED FEET RESTRAINTS, ARM RESTRAINTS IN PLACE, WILL MONITOR.
[2020-01-05 14:48] LABS: BASOPHILS # (AUTO) 0.2 K/uL (0.00-0.22); BASOPHILS % (AUTO) 2.8 % (0.0-2.0); EOSINOPHILS % (AUTO) 0.4 % (0.0-4.0); HEMATOCRIT 45.7 % (36-52); HEMOGLOBIN 15.3 g/dL (12.0-18.0); LYMPHOCYTES # (AUTO) 2.1 K/uL (2.0-11.5); LYMPHOCYTES % (AUTO) 27.9 % (20.5-51.1); MEAN CORPUSCULAR HEMOGLOBIN 32 pg (27-31); MEAN CORPUSCULAR HGB CONC 34 g/dL (33-37); MEAN CORPUSCULAR VOLUME 95.4 fL (80-94); MONOCYTES # (AUTO) 0.6 K/uL (0.8-1.0); MONOCYTES % (AUTO) 8.5 % (1.7-9.3); NEUTROPHILS # (AUTO) 4.5 K/uL (1.8-7.7); NEUTROPHILS % (AUTO) 60.4 % (42.2-75.2); PLATELET COUNT (AUTO) 247 K/uL (140-450); RED BLOOD CELL COUNT(AUTO) 4.79 MIL/uL (4.20-6.10); RED CELL DISTRIBUTION WIDTH 15.5 % (11.6-13.7); WHITE BLOOD COUNT (AUTO) 7.4 K/uL (4.8-10.8)
--- NOTE | 2020-01-05 14:53 | NUR ---
PT STATED HE WOULD NOT HARM HIMSELF OR OTHERS, ARM RESTRAINTS WERE REMOVED FROM BOTH WRISTS. NO INJURY TO WRISTS, CAP REFIL LESS THAN THREE.
[2020-01-05 15:31] LABS: ANION GAP 19.9 (8-16); CARBON DIOXIDE 24.6 mmol/L (21-32); CREATININE 0.8 mg/dL (0.6-1.3); POTASSIUM 3.5 mmol/L (3.5-5.1); TOTAL BILIRUBIN 0.3 mg/dL (0.0-1.0)
--- NOTE | 2020-01-05 15:39 | NUR ---
CRITICAL LAB FOR ETOH, 644, RECEIVED. REPORTED TO DR. SANTIAGO. PT RESTING COMFORTABLY, RESPIRATIONS EVEN, EYES SHUT, VSS. WILL CONTINUE TO MONITOR.
--- NOTE | 2020-01-05 16:01 | NUR ---
PT RESTING COMFORTABLY, VSS, RESPIRATIONS EVEN, EYES CLOSED.
--- NOTE | 2020-01-05 16:32 | NUR ---
PT RESTING, EYES CLOSED, RESPIRATIONS EVEN, VSS.
--- NOTE | 2020-01-05 17:12 | NUR ---
PT RESTING, EYES CLOSED, VSS, RESPIRATIONS EVEN.
--- NOTE | 2020-01-05 17:36 | NUR ---
PT RESTING,LAYING ON ABDOMEN, RESPIRATIONS EVEN, VSS. PT REQUESTED URINAL TO USE, LEFT AT BEDSIDE.
--- NOTE | 2020-01-05 17:50 | NUR ---
DR ABERNATHY EXAMINING PATIENT AT BEDSIDE.
--- NOTE | 2020-01-05 18:16 | NUR ---
PT RESTING, EYES CLOSED, RESPIRATIONS EVEN, VSS.
--- NOTE | 2020-01-05 18:29 | NUR ---
PT WAKING UP, CRYING. STATING HE MISSES HIS BROTHER. PT GIVEN URINAL, WET BLANKETS TAKEN OFF OF PT.
--- NOTE | 2020-01-05 19:13 | NUR ---
REPORT GIVEN TO MIMI AYOUB CHANGE OF SHIFT.
--- NOTE | 2020-01-05 19:13 | NUR ---
REPORT GIVEN TO MIMI AYOUB CHANGE OF SHIFT
--- NOTE | 2020-01-05 19:45 | NUR ---
PT TAKEN TO CT
--- NOTE | 2020-01-05 19:54 | NUR ---
PT RETURN FROM CT
--- NOTE | 2020-01-05 20:10 | NUR ---
PT BEING INTERVIEWED VIA PHONE BY STAFF FROM [facility].
--- NOTE | 2020-01-05 20:21 | NUR ---
SPOKE WITH [facility] FOR POSSIBLE PLACEMENT FOR PT. PT DENIED OF ADMISSION DUE TO INAPPROPRIATE BEHAVIOR WITH INTERVIEWER.
[2020-01-05 21:35] VITALS: BP 108/61
--- NOTE | 2020-01-05 21:35 | NUR ---
PT DISCHARGED WITH PAPERWORK. EDUCATED PT REGARDING D/C INSTRUCTIONS. PT VERBALIZED UNDERSTANDING. TOLD PT TO FOLLOW UP WITH PCP AND WHEN TO RETURN TO ED. PT STABLE CONDITION. ABLE TO AMBULATE WITH STEADY GAIT. ALL QUESTIONS ANSWERED.
== END 2020-01-05 21:35 | disposition home or self-care (01) ==
LOC: MED 14:25
DX: F10.129 Alcohol abuse with intoxication, unspecified (principal); Y90.8 Blood alcohol level of 240 mg/100 ml or more; R41.82 Altered mental status, unspecified; Z91.013 Allergy to seafood
CPT/HCPCS: 36415; 70450; 80053; 82948; 85025; 99284; G0482

== ENCOUNTER 2020-01-15 18:13 | Emergency (ER) | payer OTHER ==
[~2020-01-15] VITALS: Ht 157.5 cm; Wt 59.0 kg
[2020-01-15 18:24] VITALS: BP 125/77
[2020-01-15 21:14] VITALS: BP 125/77
--- NOTE | 2020-01-15 21:14 | NUR ---
PT CALLED FROM [facility], NO RESPONSE, LWBS
--- NOTE | 2020-01-15 21:14 | NUR ---
PATIENT LEFT WITHOUT BEING SEEN BY DR. WILLAMS. NO FURTHER CARE PROVIDED FOR PATIENT.
== END 2020-01-15 21:14 | disposition left against medical advice (07) ==
LOC: MED 18:13
DX: R51 Headache (principal); Z53.21 Procedure and treatment not carried out due to patient leaving prior to being seen by health care provider

== ENCOUNTER 2020-02-18 13:51 | Emergency (ER) | payer OTHER ==
[~2020-02-18] VITALS: Ht 165.1 cm; Wt 59.0 kg
[2020-02-18 14:00] VITALS: BP 134/84
--- NOTE | 2020-02-18 14:00 | NUR ---
PT TRIAGED, SENT BACK TO [facility]OB[facility] AWAITING FOR BED
[2020-02-18 15:32] VITALS: BP 134/84
--- NOTE | 2020-02-18 15:33 | NUR ---
Patient discharged with v/s stable. Written and verbal after care instructions given and explained. Patient alert, oriented and verbalized understanding of instructions. Ambulatory with steady gait. All questions addressed prior to discharge. ID band removed. Patient advised to follow up with PMD. Rx of PROMETHAZINE, MOTRIN given. Patient educated on indication of medication including possible reaction and side effects. Opportunity to ask questions provided and answered.
== END 2020-02-18 15:33 | disposition home or self-care (01) ==
LOC: MED 13:51
DX: J06.9 Acute upper respiratory infection, unspecified (principal); J02.9 Acute pharyngitis, unspecified; Z91.013 Allergy to seafood
CPT/HCPCS: 71045; 99283

== ENCOUNTER 2020-03-08 22:41 | Emergency (ER) | payer OTHER, SELFPAY ==
[~2020-03-08] VITALS: Ht 165.1 cm; Wt 68.0 kg
[2020-03-08 23:23] VITALS: BP 130/87
[2020-03-08] MEDS ORDERED: NACL 0.9% 1,000 ML IV ONE ×2 (23:26→23:30)
[2020-03-08] MEDS ORDERED: KETOROLAC 30 MG/ML VIAL IVP ONE (23:35)
[2020-03-08 23:38] LABS: BASOPHILS # (AUTO) 0.2 K/uL (0.00-0.22); BASOPHILS % (AUTO) 1.8 % (0.0-2.0); EOSINOPHILS # (AUTO) 0.1 K/uL (0-0.4); EOSINOPHILS % (AUTO) 0.8 % (0.0-4.0); HEMATOCRIT 46.9 % (36-52); HEMOGLOBIN 15.6 g/dL (12.0-18.0); LYMPHOCYTES # (AUTO) 2.7 K/uL (2.0-11.5); LYMPHOCYTES % (AUTO) 30.1 % (20.5-51.1); MEAN CORPUSCULAR HEMOGLOBIN 32 pg (27-31); MEAN CORPUSCULAR HGB CONC 33 g/dL (33-37); MONOCYTES # (AUTO) 0.9 K/uL (0.8-1.0); MONOCYTES % (AUTO) 9.8 % (1.7-9.3); NEUTROPHILS # (AUTO) 5.1 K/uL (1.8-7.7); NEUTROPHILS % (AUTO) 57.5 % (42.2-75.2); PLATELET COUNT (AUTO) 380 K/uL (140-450); RED BLOOD CELL COUNT(AUTO) 4.89 MIL/uL (4.20-6.10); RED CELL DISTRIBUTION WIDTH 16.4 % (11.6-13.7); WHITE BLOOD COUNT (AUTO) 8.8 K/uL (4.8-10.8)
[2020-03-08 23:50] LABS: BARBITURATE, URINE NEGATIVE ng/ml (NEG <=200); BENZODIAZEPINE, URINE POSITIVE ng/mL (NEG <=200); CANNABINOID, URINE NEGATIVE ng/mL (NEG <=50); COCAINE, URINE NEGATIVE ng/mL (NEG <=300); OPIATE, URINE NEGATIVE ng/mL (NEG <=2000); PHENCYCLIDINE SCREEN,URINE NEGATIVE ng/mL (NEG <=25)
[2020-03-08 23:54] LABS: ALBUMIN 4.8 g/dL (3.4-5.0); ANION GAP 15.1 (8-16); POTASSIUM 4.1 mmol/L (3.5-5.1); TOTAL BILIRUBIN 0.2 mg/dL (0.0-1.0)
[2020-03-09 00:23] VITALS: BP 130/87
== END 2020-03-09 00:24 | disposition home or self-care (01) ==
LOC: EEVIPCON 22:41 → MED 22:41
DX: R10.10 Upper abdominal pain, unspecified (principal); F15.10 Other stimulant abuse, uncomplicated; F10.129 Alcohol abuse with intoxication, unspecified; R11.2 Nausea with vomiting, unspecified; F41.9 Anxiety disorder, unspecified; Z91.013 Allergy to seafood
CPT/HCPCS: 36415; 80053; 80305; 83690; 85025; 93005; 96374; 99283; G0482; J1885; J7030; 96361